=== PATIENT | male | born 1960 | race Two or more races ===

== ENCOUNTER 2017-04-17 16:30 | Emergency (ER) | payer OTHER ==
[~2017-04-17] VITALS: Ht 180.3 cm; Wt 93.0 kg
[~2017-04-17 16:30] MED LIST: BACTRIM DS TAB1 EAC1 ORAL; KEFLEX500 MG ORAL; METHADONE HCL10 MG PO; NORCO 5-325 TA1 EACH ORAL
[2017-04-17] MEDS ORDERED: NKM (16:41)
[2017-04-17] MEDS ORDERED: BACTRIM DS TAB1 EAC1 ORAL (17:03)
[2017-04-17] MEDS ORDERED: KEFLEX500 MG ORAL (17:03)
[2017-04-17 17:27] VITALS: BP 143/85
--- NOTE | 2017-04-17 17:37 | Emergency Room Report ---
History of Present Illness General Chief Complaint: Pain Source: Patient Present Illness HPI 48-year-old male presents to ED complaining of pain to right leg. States that 4 days ago he scraped his leg in the garage. Tetanus is up-to-date. Since then patient had increased pain and swelling to the right leg. Denies any fevers or chills. Denies discharge. Pain is an 8/10, throbbing, nonradiating. Denies any other injuries. No other aggravating relieving factors. Denies any other associated symptoms Allergies: Coded Allergies: No Known Allergies (Unverified , 08/12/14) Patient History Past Medical History: none Past Surgical History: none Pertinent Family History: none Social History: Denies: smoking, alcohol use, drug use Immunizations: UTD Reviewed Nursing Documentation: PMH: Agreed, PSxH: Agreed Nursing Documentation-PMH Past Medical History: No Stated History Hx Cardiac Problems: No Hx Hypertension: No Hx Pacemaker: No Hx Asthma: No Hx COPD: No Hx Diabetes: No Hx Cancer: No Hx Gastrointestinal Problems: No Hx Dialysis: No Hx Neurological Problems: No Hx Cerebrovascular Accident: No Hx Seizures: No Review of Systems All Other Systems: negative except mentioned in HPI Physical Exam Vital Signs Date Time Temp Pulse Resp B/P (MAP) Pulse Ox O2 Delivery O2 Flow Rate FiO2 04/17/17 16:37 98.4 74 21 143/85 97 Room Air Sp02 EP Interpretation: reviewed, normal General Appearance: no apparent distress, alert, GCS 15, non-toxic Head: normocephalic Eyes: bilateral eye normal inspection, bilateral eye PERRL ENT: normal ENT inspection Neck: normal inspection Respiratory: normal inspection Cardiovascular #1: normal inspection Gastrointestinal: normal inspection Rectal: deferred Genitourinary: no CVA tenderness Musculoskeletal: normal inspection Neurologic: alert, oriented x3, responsive, motor strength/tone normal, sensory intact, speech normal Psychiatric: normal inspection Skin: other - induration/erythema to RLE. no fluctuance. no discharge Lymphatic: normal inspection Medical Decision Making Diagnostic Impression: Primary Impression: Cellulitis Qualified Codes: L03.115 - Cellulitis of right lower limb ER Course Hospital Course 56-year-old male presents to ED with redness, pain to RLE Differential diagnoses include: Cellulitis, dermatitis, insect bite, abscess Clinical course Patient placed on stretcher. After initial history, physical exam reveals a middle aged male in no acute distress. On exam there is a site for mild erythema and induration to the RLE. There is no fluctuance. Tetanus is up-to-date. We will discharge with antibiotics. Patient appears nontoxic and afebrile. Safe for discharge Diagnosis - cellulitis stable and discharged to home with prescription for bactrim, Keflex. Instructed to followup with PMD. Instructed return to ED if symptoms recur or worsen Last Vital Signs Date Time Temp Pulse Resp B/P (MAP) Pulse Ox O2 Delivery O2 Flow Rate FiO2 04/17/17 17:27 98.4 74 21 143/85 97 Room Air Status: improved Disposition: HOME, SELF-CARE Condition: Stable Scripts Trimethoprim/Sulfamethoxazole 160/800* (BACTRIM DS TABLET*) 1 Each Tablet 1 TAB ORAL Q12H, #14 TAB 0 Refills Prov: KAILEY CAIN M.D. 04/17/17 Cephalexin* (KEFLEX*) 500 Mg Capsule 500 MG ORAL Q6H, #28 CAP 0 Refills Prov: KAILEY CAIN M.D. 04/17/17 Referrals: [facility],REFERRING (PCP) Patient Instructions: Cellulitis, [id number] KAILEY CAIN M.D. Apr 17, 2017 17:37
== END 2017-04-17 17:28 | disposition home or self-care (01) ==
LOC: EMR 16:50
DX: L03.115 Cellulitis of right lower limb (principal)
CPT/HCPCS: 99283

== ENCOUNTER 2017-07-06 10:33 | Emergency (ER) | payer OTHER ==
[~2017-07-06] VITALS: Ht 180.3 cm; Wt 88.5 kg
[~2017-07-06 10:33] MED LIST changes: +NKM
--- NOTE | 2017-07-06 12:02 | Emergency Room Report ---
History of Present Illness General Chief Complaint: Dyspnea/Respdistress Source: Patient Present Illness HPI 57-year-old male with a history of no medical problems comes in with cough and congestion for the past 2-3 days, symptoms worse at night he does report greenish sputum production, denies hemoptysis denies leg pain denies fevers denies nausea vomiting denies syncope denies chest pain other than when he is coughing Allergies: Coded Allergies: No Known Allergies (Unverified , 08/12/14) Patient History Past Medical History: see triage record Reviewed Nursing Documentation: PMH: Agreed; PSxH: Agreed Nursing Documentation-PMH Past Medical History: No Stated History Hx Cardiac Problems: No Hx Hypertension: No Hx Pacemaker: No Hx Asthma: No Hx COPD: No Hx Diabetes: No Hx Cancer: No Hx Gastrointestinal Problems: No Hx Dialysis: No Hx Neurological Problems: No Hx Cerebrovascular Accident: No Hx Seizures: No Review of Systems All Other Systems: negative except mentioned in HPI Physical Exam Vital Signs Date Time Temp Pulse Resp B/P (MAP) Pulse Ox O2 Delivery O2 Flow Rate FiO2 07/06/17 10:54 98.9 89 22 170/90 90 Room Air 99.0 Sp02 EP Interpretation: reviewed, normal General Appearance: no apparent distress, alert, non-toxic Head: normocephalic Eyes: bilateral eye normal inspection, bilateral eye PERRL, bilateral eye EOMI ENT: normal ENT inspection, hearing grossly normal, normal pharynx, no angioedema, normal voice, moist mucus membranes Neck: normal inspection, full range of motion, supple, supple/symm/no masses Respiratory: chest non-tender, lungs clear, normal breath sounds, chest symmetrical, palpation of chest normal Cardiovascular #1: normal peripheral pulses, regular rate, rhythm, edema - 1+ bilatera lower extremy edema negative Homans sign Cardiovascular #2: 2+ radial (R), 2+ radial (L) Gastrointestinal: normal inspection, non tender, soft, no mass, no guarding, no rebound Rectal: deferred Genitourinary: normal inspection, no CVA tenderness Musculoskeletal: back normal, gait/station normal, normal range of motion, non- tender, no calf tenderness Neurologic: alert, responsive, machine tool designer III-XII nml as tested, motor strength/tone normal, sensory intact, speech normal Psychiatric: judgement/insight normal, memory normal, mood/affect normal, no suicidal/homicidal ideation Skin: normal color, no rash, warm/dry, normal turgor Lymphatic: no adenopathy Medical Decision Making Diagnostic Impression: Primary Impression: Dyspnea Additional Impression: Bronchitis ER Course Patient has had a cough, was given breathing treatments and steroids, he felt much better after that treatment, his labs are not very concerning for new onset CHF nor any other acute pathology. It was clear EKG unremarkable, he'll be discharged diagnosis bronchitis, follow-up with his PMD as soon as possible. EKG Diagnostic Results EKG Time: 12:07 EP Interpretation: no st-t changes, no twi, no LVH Rate: normal Rhythm: NSR ST Segments: no acute changes ASA given to the pt in ED: Yes Rhythm Strip Diag. Results Rhythm Strip Time: 13:40 EP Interpretation: yes Rate: 89 Rhythm: NSR, no PVC's Chest X-Ray Diagnostic Results Chest X-Ray Diagnostic Results : Chest X-Ray Ordered: Yes # of Views/Limited/Complete: 1 View Indication: Shortness of Breath EP Interpretation: Yes PA Xray: Interpretation reviewed Interpretation: no consolidation, no effusion, no pneumothorax, no acute cardiopulmonary disease Impression: No acute disease Electronically Signed by: Tiffanie Thibodeaux MD Last Vital Signs Date Time Temp Pulse Resp B/P (MAP) Pulse Ox O2 Delivery O2 Flow Rate FiO2 07/06/17 10:54 98.9 89 22 170/90 90 Room Air 99.0 Disposition: HOME, SELF-CARE Condition: Improved Referrals: NON PHYSICIAN (PCP) TIFFANIE THIBODEAUX M.D Jul 06, 2017 12:02
[2017-07-06] MEDS ORDERED: Ipratropium 0.02% Inh Soln 2.5ml UD HHN ONE (12:15)
[2017-07-06] MEDS ORDERED: Albuterol ud Inhalation HHN ONE (12:15)
[2017-07-06] MEDS ORDERED: Solu-MEDROL 125mg Inj IVP ONE (12:15)
[2017-07-06 12:44] LABS: ANION GAP 6 mmol/L (5-15); BLOOD UREA NITROGEN 11 mg/dL (7-18); CALCIUM 8.3 MG/DL (8.5-10.1); CARBON DIOXIDE 29 MMOL/L (21-32); CHLORIDE 102 MMOL/L (98-107); CREATININE 0.8 MG/DL (0.55-1.30); POTASSIUM 4.2 MMOL/L (3.5-5.1); SODIUM 137 MMOL/L (136-145)
[2017-07-06 12:50] VITALS: BP 154/74
[2017-07-06 12:55] LABS: ALANINE AMINOTRANSFERASE 32 U/L (12-78); ALBUMIN 2.7 G/DL (3.4-5.0); ALBUMIN/GLOBULIN RATIO 0.6 (1.0-2.7); ALKALINE PHOSPHATASE 106 U/L (46-116); ASPARTATE AMINO TRANSFERASE 52 U/L (15-37); BILIRUBIN,TOTAL 0.8 MG/DL (0.2-1.0)
--- NOTE | 2017-07-06 12:55 | Diagnostic Imaging Report ---
Indication: Reason For Exam: COUGH Technique: XRAY Chest 1v Comparison: None Findings: Heart size and mediastinal contours are within normal limits given technique. There is no focal consolidation, pneumothorax or pleural effusion. Osseous structures demonstrate no acute abnormality. Impression: No radiographic evidence of acute cardiopulmonary disease.
[2017-07-06 13:23] LABS: HEMATOCRIT 42.6 % (42.0-52.0); HEMOGLOBIN 13.9 G/DL (14.2-18.0); MEAN CORPUSCULAR VOLUME 89 FL (80-99); PLATELET COUNT 88 K/UL (150-450); RED BLOOD COUNT 4.82 M/UL (4.70-6.10); RED CELL DISTRIBUTION WIDTH 12.5 % (11.6-14.8); WHITE BLOOD COUNT 9.9 K/UL (4.8-10.8)
[2017-07-06] MEDS ORDERED: ALBUTEROL SULF8.5 GM INH (13:42)
[2017-07-06 14:12] VITALS: BP 156/71
[2017-07-06 14:19] VITALS: BP 156/71
--- NOTE | 2017-07-07 18:10 | Cardiology Report ---
APPROVED REPORT EKG Measurement Heart [id number] VT [id number] [id number] Normal sinus rhythm Nonspecific T wave abnormality Prolonged QT Abnormal ECG
== END 2017-07-06 14:21 | disposition home or self-care (01) ==
LOC: EMR 11:50
DX: J40 Bronchitis, not specified as acute or chronic (principal)
CPT/HCPCS: 36415; 71045; 80053; 83880; 84484; 85007; 85025; 93005; 94640; 99283

== ENCOUNTER 2017-09-12 15:21 | Emergency (ER) | payer OTHER ==
[~2017-09-12] VITALS: Ht 180.3 cm; Wt 102.1 kg
[~2017-09-12 15:21] MED LIST changes: +ALBUTEROL SULF8.5 GM INH
[2017-09-12 15:40] VITALS: BP 171/83
[2017-09-12] MEDS ORDERED: Vancomycin 1.5gm/D5W 250ml 325 ML IVPB ONE (16:00)
[2017-09-12] MEDS ORDERED: CEPHALEXIN500 MG ORAL (16:03)
[2017-09-12] MEDS ORDERED: BACTRIM DS TAB1 EAC1 ORAL (16:03)
[2017-09-12] MEDS ORDERED: Lidocaine 1% MPF 10mg/ml 5ml ONE (16:12)
[2017-09-12] MEDS ORDERED: Lidocaine 1% MPF 10mg/ml 5ml IM ONE (16:15)
--- NOTE | 2017-09-12 16:22 | Emergency Room Report ---
History of Present Illness General Chief Complaint: General Complaint Source: Patient Present Illness HPI Patient has a remote history of drug abuse with multiple episodes cellulitis and abscess per his report. Patient presents emergency department today complaining of left upper extremity swelling. He states that he has cellulitis in that area. He states that he cannot stay in the hospital. He is refusing any workup or ultrasound and is only requesting one dose of antibiotic IM. He states that he cannot stay to wait for a IV antibiotic or laboratory workup. Patient will leave the hospital against medical advise. He is asking for oral antibiotics. No other complaints were noted. Symptoms noted to be moderate to severe. Patient noted warmth the area but denies any fever nausea vomiting diarrhea or chills. He complains of pain in the area. The area of maximal swelling in his left upper extremity near the area of the brachium. And running into the area of the elbow area.No other modifying factors. No other associated signs and symptoms. No other complaints were noted. Allergies: Coded Allergies: No Known Allergies (Unverified , 08/12/14) Patient History Past Medical History: none Past Surgical History: none Pertinent Family History: none Social History: Reports: drug use - Remote history Reviewed Nursing Documentation: PMH: Agreed; PSxH: Agreed Nursing Documentation-PMH Past Medical History: No Stated History Hx Cardiac Problems: No Hx Hypertension: No Hx Pacemaker: No Hx Asthma: No Hx COPD: No Hx Diabetes: No Hx Cancer: No Hx Gastrointestinal Problems: No Hx Dialysis: No Hx Neurological Problems: No Hx Cerebrovascular Accident: No Hx Seizures: No Review of Systems All Other Systems: negative except mentioned in HPI Physical Exam Vital Signs Date Time Temp Pulse Resp B/P (MAP) Pulse Ox O2 Delivery O2 Flow Rate FiO2 09/12/17 15:36 98.5 83 18 171/83 97 Room Air 98.4 Sp02 EP Interpretation: reviewed, normal General Appearance: normal inspection, well appearing, no apparent distress, alert Head: atraumatic Eyes: bilateral eye normal inspection ENT: normal ENT inspection, hearing grossly normal, normal voice Neck: normal inspection, full range of motion, supple, no bony tend Respiratory: normal inspection, lungs clear, normal breath sounds, no respiratory distress, no retraction, no wheezing Cardiovascular #1: regular rate, rhythm, no edema Gastrointestinal: normal inspection, normal bowel sounds, non tender, soft, no guarding, no hernia Genitourinary: no CVA tenderness Musculoskeletal: inflammation - Left upper extremity, cellulitis, no fluctuance Neurologic: normal inspection, alert, responsive, speech normal Psychiatric: normal inspection, judgement/insight normal, mood/affect normal Skin: normal inspection, normal color, no rash Medical Decision Making Diagnostic Impression: Primary Impression: Cellulitis and abscess ER Course Patient presents emergency department today complaining of left upper chimney swelling. Differential considerations include abscess, cellulitis, arthritis, septic joint just to name a few. Patient's exam is concerning for cellulitis for there is no evidence abscess. I felt the patient should be treated with antibiotics. Initially ordered IV antibiotics the patient refused IV antibiotics he refused to be admitted refused laboratory workup or ultrasound. Patient will leave AGAINST MEDICAL ADVICE he is capable making decisions and appropriately understands risks of losing his arm as well as possibly of . Patient was advised that he can return to the hospital if symptoms became worse. He was given one dose of Ancef IM and a prescription for Bactrim and Keflex.Patient is advised to follow up with primary doctor in 2-3 days and return the emergency room for any worsening symptoms and as needed. Last Vital Signs Date Time Temp Pulse Resp B/P (MAP) Pulse Ox O2 Delivery O2 Flow Rate FiO2 09/12/17 15:36 98.5 83 18 171/83 97 Room Air 98.4 Disposition: AGAINST MEDICAL ADVICE Condition: Stable Scripts Trimethoprim/Sulfamethoxazole 160/800* (BACTRIM DS TABLET*) 1 Each Tablet 1 TAB ORAL Q12H, #20 TAB 0 Refills Prov: Niko Boykin MD 09/12/17 Cephalexin* (KEFLEX*) 500 Mg Capsule 500 MG ORAL EVERY 6 HOURS for 10 Days, CAP Prov: Niko Boykin MD 09/12/17 Patient Instructions: Cellulitis Niko Boykin MD Sep 12, 2017 16:22
[2017-09-12 16:53] VITALS: BP 171/83
== END 2017-09-12 16:53 | disposition left against medical advice (07) ==
LOC: EMR 16:23
DX: L03.114 Cellulitis of left upper limb (principal)
CPT/HCPCS: 96365; 96366; 96372; 99284; J0690